=== PATIENT | male | born 1975 | race Caucasian/White ===

== ENCOUNTER 2017-11-23 11:08 | Inpatient (IN) ==
[2017-11-23 11:42] LABS: Bilirubin,Urine Negative (Negative); Blood,Urine Negative (Negative); Clarity,Urine Clear (Clear); Color,Urine Yellow (Yellow); Glucose,Urine (UA) Normal (Normal); Ketones,Urine Negative (Negative); Leukocyte Esterase,Urine Negative (Negative); Nitrite,Urine Negative (Negative); Protein,Urine Negative (Neg-Trace); Specific Gravity,Urine 1.019 (1.010-1.025); Urobilinogen,Urine Normal (Normal)
[2017-11-23] MEDS ORDERED: 0.9 % Sodium Chloride 1,000 ML IVC ONE (12:47)
[2017-11-23] MEDS ORDERED: *HR* HYDROmorphone (PF) 1 MG/ML SYRINGE IVP ONE ×2 (12:47→15:38)
[2017-11-23] MEDS ORDERED: Ondansetron 4 MG/2 ML VIAL IVP ONE (12:47)
[2017-11-23 12:58] LABS: Basophils # 0.1 K/mcL (0.0-0.2); Basophils % 0.6 %; Eosinophils # 0.2 K/mcL (0.0-0.6); Eosinophils % 1.7 %; Hemoglobin 12.2 g/dL (12.9-16.9); Immature Granulocytes % 1.4 % (0-4); Lymphocytes # 1.7 K/mcL (0.6-4.6); Lymphocytes % 13.7 %; Mean Corpuscular HGB Conc 33.9 g/dL (31.6-35.5); Mean Corpuscular Hemoglobin 30.1 pg (28.0-33.3); Mean Corpuscular Volume 88.9 fL (83.0-100.0); Mean Platelet Volume 10.2 fL (9.4-12.4); Monocytes # 0.9 K/mcL (0.0-1.3); Monocytes % 7.2 %; Neutrophils # 9.5 K/mcL (1.6-8.9); Platelet Count 396 K/mcL (140-400); Red Blood Count 4.05 M/mcL (4.19-5.50); Red Cell Distribution Width 12.7 % (11.5-14.5); Segmented Neutrophils % 75.4 %
[2017-11-23 13:41] LABS: Alanine Aminotransferase 27 Units/L (7-52); Albumin 3.8 g/dL (3.5-5.7); Alkaline Phosphatase 146 Units/L (34-104); Aspartate Amino Transferase 19 Units/L (13-39); BUN/Creatinine Ratio 17 (6-26); Bilirubin,Indirect 0.4 mg/dL (0.0-1.2); Bilirubin,Total 0.4 mg/dL (0.3-1.0); Blood Urea Nitrogen 14 mg/dL (6-20); Calcium 9.2 mg/dL (8.6-10.3); Carbon Dioxide 28 mEq/L (23-29); Chloride 100 mEq/L (98-107); Globulin 3.8 g/dL (2.4-3.5); Glucose 106 mg/dL (70-105); Lipase 9 Units/L (11-82); Osmolality,Calculated 279 (280-300); Potassium 4.3 mEq/L (3.5-5.1); Sodium 134 mEq/L (136-145); Total Protein 7.6 g/dL (6.4-8.9); eGFR For African Americans > 60 (> 60); eGFR For Non-African Americans > 60 (> 60)
[2017-11-23] MEDS ORDERED: Levofloxacin 750 MG/150 ML 750 MG/150 ML BAG IVPB ONE (14:11)
--- NOTE | 2017-11-23 14:20 | Emergency Department Note ---
Disposition Clinical Impression: Splenic infarct Pneumonia Qualifiers: Laterality: left Disposition: Admitted As Inpatient Condition: Good Referrals: Kenny Nelson, MEDICAL DEVICE SALES CONSULTANT [Primary Care Provider] - Forms: ED Satisfaction Letter, Work/School Release Abdominal Pain HPI - General Chief Complaint: ED Abdominal Pain Stated Complaint: L Flank pain/Fever Time Seen by Provider: 11/23/17 11:14 Source: patient Nursing Notes Reviewed: Yes Vital Signs Reviewed: Yes - History of Present Illness HPI Narrative: 42-year-old male presented to the emergency room with abdominal pain 1 week. Associated with a slight cough. He states the pain is generalized in the abdomen is now spread to the left upper quadrant. Denies any urinary symptoms. No vomiting or diarrhea. States she has had low grade fevers with this cough as well. Pain is mostly to the left lower ribs as well as the left upper quadrant. No other complaints symptoms other than the cough and fever. She has no history of any pain or symptoms like this in his past. No recent travels. No history of clots in his leg or lung. NOTE: pt admitted that he had lied about his PMHX. he has hx of IV drug use. Hx of spinal epidural abscess over a year ago. had a picc line a few months ago for cellulitis and sepsis from leg cellulitis. he did not offer this infomration to me up front and lied about this. Pain Scale: 8 - Related Data Home Medications Medication Instructions Recorded Confirmed Citalopram [CeleXA] 40 mg PO DAILY 05/12/16 11/11/17 Cetirizine HCl [Zyrtec] 10 mg PO DAILY 08/13/16 11/11/17 Cyclobenzaprine HCl 5 mg PO TID 08/31/17 11/11/17 Gabapentin [Neurontin] 600 mg PO TID 08/31/17 11/11/17 Losartan Potassium [Cozaar] 100 mg PO DAILY 08/31/17 11/11/17 Montelukast Sodium [Singulair] 10 mg PO DAILY 08/31/17 11/11/17 Oxycodone HCl [Oxaydo] 7.5 mg PO QID PRN 08/31/17 11/11/17 amLODIPine [Norvasc] 5 mg PO DAILY 08/31/17 11/11/17 metFORMIN [Glucophage] 850 mg PO BIDWM 08/31/17 11/11/17 Allergies Allergy/AdvReac Type Severity Reaction Status Date / Time Penicillins Allergy Rash Verified 08/31/17 06:05 Sulfa (Sulfonamide AdvReac Rash Verified 08/31/17 09:18 Antibiotics) Constitutional: Reports: fever, chills Eyes: Reports: as per HPI ENT ED: Reports: as per HPI Cardiovascular: Denies: chest pain, palpitations Respiratory: Reports: cough Gastrointestinal: Reports: abdominal pain Genitourinary: Reports: as per HPI Musculoskeletal: Reports: as per HPI, back pain Integumentary: Reports: as per HPI Neurological: Reports: as per HPI Psychiatric: Reports: as per HPI Endocrine: Reports: fatigue Hematological/Lymphatic: Reports: as per HPI. Denies: easy bleeding, easy bruising Allergic/Immunologic: Reports: as per HPI Abdominal Pain PMH - Past Medical History Medical history: Reports: diabetes, hepatitis, hypertension, other Male Surgical History: Reports: no surgical history Psychiatric history: Reports: depression - Social History Smoking status: Current every day smoker Alcohol use: Reports: none Drug use: Reports: none Physical Exam - General Limitations: no limitations General appearance: alert, in no apparent distress - Head Head exam: atraumatic, normocephalic - ENT ENT exam: normal exam - Chest Chest inspection: Present: normal inspection - Respiratory Respiratory exam: Present: normal lung sounds bilaterally. Absent: respiratory distress, wheezes - Cardiovascular Cardiovascular exam: Present: normal rhythm, tachycardia - Abdominal Exam Abdominal exam: Present: soft, tenderness (Patient has tenderness to the left upper quadrant. Positive voluntary guarding. Slight distention of the left upper quadrant. Positive splenomegaly.), organomegaly Abdominal tenderness: Present: LUQ - Male exam: Present: normal inspection - Extremities Exam Extremities exam: Present: normal inspection - Expanded Lower Extremity Exam Hip/Pelvis exam: Present: normal inspection - Back Exam Back exam: Present: normal inspection, CVA tenderness (L) - Neurological Exam Neurological exam: Present: alert, oriented X3 - Psychiatric Psychiatric exam: Present: normal affect, normal mood - Skin Skin exam: Present: warm, dry, intact Course Vital Signs Temperature 98.2 F 11/23/17 11:08 Pulse Rate 113 11/23/17 11:08 Respiratory Rate 18 11/23/17 11:08 Blood Pressure 142/87 11/23/17 11:08 O2 Sat by Pulse Oximetry 97 11/23/17 11:08 Temperature 98.2 F 11/23/17 11:08 Pulse Rate 108 11/23/17 14:40 Respiratory Rate 16 11/23/17 14:40 Blood Pressure 141/73 11/23/17 14:40 O2 Sat by Pulse Oximetry 94 11/23/17 14:40 Oxygen Delivery Oxygen Delivery Room Air Abdominal Pain - MDM Narrative Medical decision making narrative: Patient has evidence of a splenic infarct on CT scan. I repeated the CTA of the chest and abdomen. He does have evidence what appears to be pneumonia involving the left lower lung. Patient has a history of IV drug use as well as a history of sepsis. We have ordered IV Levaquin. Pain control. IV fluids. I consulted with Dr. Noland with general surgery. He will see the patient in consultation. admit - Lab Data Result diagrams: 11/23/17 11:30 11/23/17 11:30 Lab Results 11/23/17 11/23/17 11/23/17 Range/Units 11:21 11:30 11:30 WBC 12.6 H (4.3-11.1) K/mcL RBC 4.05 L (4.19-5.50) M/mcL Hgb 12.2 L (12.9-16.9) g/dL Hct 36.0 L (37.5-50.1) % MCV 88.9 (83.0-100.0) fL MCH 30.1 (28.0-33.3) pg MCHC 33.9 (31.6-35.5) g/dL RDW 12.7 (11.5-14.5) % Plt Count 396 (140-400) K/mcL MPV 10.2 (9.4-12.4) fL Immature Gran % 1.4 (0-4) % Seg Neutrophils % 75.4 % Lymphocytes % 13.7 % Monocytes % 7.2 % Eosinophils % 1.7 % Basophils % 0.6 % Neutrophils # 9.5 H (1.6-8.9) K/mcL Lymphocytes # 1.7 (0.6-4.6) K/mcL Monocytes # 0.9 (0.0-1.3) K/mcL Eosinophils # 0.2 (0.0-0.6) K/mcL Basophils # 0.1 (0.0-0.2) K/mcL Sodium 134 L (136-145) mEq/L Potassium 4.3 (3.5-5.1) mEq/L Chloride 100 (98-107) mEq/L Carbon Dioxide 28 (23-29) mEq/L BUN 14 (6-20) mg/dL Creatinine 0.83 (0.70-1.30) mg/dL Est GFR ( Amer) > 60 (> 60) Est GFR (Non-Af Amer) > 60 (> 60) BUN/Creatinine Ratio 17 (6-26) Glucose 106 H (70-105) mg/dL Calculated Osmolality 279 L (280-300) Lactic Acid (0.5-2.2) mmol/L Calcium 9.2 (8.6-10.3) mg/dL Total Bilirubin 0.4 (0.3-1.0) mg/dL Direct Bilirubin 0.0 (0.0-0.2) mg/dL Indirect Bilirubin 0.4 (0.0-1.2) mg/dL AST 19 (13-39) Units/L ALT 27 (7-52) Units/L Alkaline Phosphatase 146 H (34-104) Units/L Serum Total Protein 7.6 (6.4-8.9) g/dL Albumin 3.8 (3.5-5.7) g/dL Globulin 3.8 H (2.4-3.5) g/dL Albumin/Globulin Ratio 1.0 L (1.1-2.2) Lipase 9 L (11-82) Units/L Urine Color Yellow (Yellow) Urine Clarity Clear (Clear) Urine pH 6.0 (5.0-8.0) pH Units Ur Specific Malcolm 1.019 (1.010-1.025) Urine Protein Negative (Neg-Trace) mg/dL Urine Glucose (UA) Normal (Normal) mg/dL Urine Ketones Negative (Negative) mg/dL Urine Blood Negative (Negative) Urine Nitrite Negative (Negative) Urine Bilirubin Negative (Negative) Urine Urobilinogen Normal (Normal) mg/dL Ur Leukocyte Esterase Negative (Negative) 11/23/17 Range/Units 13:00 WBC (4.3-11.1) K/mcL RBC (4.19-5.50) M/mcL Hgb (12.9-16.9) g/dL Hct (37.5-50.1) % MCV (83.0-100.0) fL MCH (28.0-33.3) pg MCHC (31.6-35.5) g/dL RDW (11.5-14.5) % Plt Count (140-400) K/mcL MPV (9.4-12.4) fL Immature Gran % (0-4) % Seg Neutrophils % % Lymphocytes % % Monocytes % % Eosinophils % % Basophils % % Neutrophils # (1.6-8.9) K/mcL Lymphocytes # (0.6-4.6) K/mcL Monocytes # (0.0-1.3) K/mcL Eosinophils # (0.0-0.6) K/mcL Basophils # (0.0-0.2) K/mcL Sodium (136-145) mEq/L Potassium (3.5-5.1) mEq/L Chloride (98-107) mEq/L Carbon Dioxide (23-29) mEq/L BUN (6-20) mg/dL Creatinine (0.70-1.30) mg/dL Est GFR ( Amer) (> 60) Est GFR (Non-Af Amer) (> 60) BUN/Creatinine Ratio (6-26) Glucose (70-105) mg/dL Calculated Osmolality (280-300) Lactic Acid 1.2 (0.5-2.2) mmol/L Calcium (8.6-10.3) mg/dL Total Bilirubin (0.3-1.0) mg/dL Direct Bilirubin (0.0-0.2) mg/dL Indirect Bilirubin (0.0-1.2) mg/dL AST (13-39) Units/L ALT (7-52) Units/L Alkaline Phosphatase (34-104) Units/L Serum Total Protein (6.4-8.9) g/dL Albumin (3.5-5.7) g/dL Globulin (2.4-3.5) g/dL Albumin/Globulin Ratio (1.1-2.2) Lipase (11-82) Units/L Urine Color (Yellow) Urine Clarity (Clear) Urine pH (5.0-8.0) pH Units Ur Specific Malcolm (1.010-1.025) Urine Protein (Neg-Trace) mg/dL Urine Glucose (UA) (Normal) mg/dL Urine Ketones (Negative) mg/dL Urine Blood (Negative) Urine Nitrite (Negative) Urine Bilirubin (Negative) Urine Urobilinogen (Normal) mg/dL Ur Leukocyte Esterase (Negative)
[2017-11-23] MEDS ORDERED: WATER IVPB ONE (16:00)
[2017-11-23] MEDS ORDERED: VANCOMYCIN IVPB ONE (16:00)
[2017-11-23] MEDS ORDERED: D10 IVPB ONE (16:00)
[2017-11-23] MEDS ORDERED: Vancomycin 1,750 MG in D5% in Water 500 ML IVPB ONE (16:15)
[2017-11-23] MEDS ORDERED: *HR* Morphine 2 MG/ML SYRINGE IVP ONE (18:59)
[2017-11-23] MEDS ORDERED: *HR* Promethazine 25 MG/ML VIAL IVP ONE (19:54)
[2017-11-23] MEDS ORDERED: Ipratropium/Albuterol Neb 3 ML IH PRN ×2 (20:45→20:52)
[2017-11-23] MEDS ORDERED: Cefepime HCl 1,000 MG in D5% in Water (Mini-Bag+) 100 ML IVPB SCH (20:46)
[2017-11-23] MEDS ORDERED: Ondansetron 4 MG/2 ML VIAL IVP PRN (20:47)
[2017-11-23] MEDS ORDERED: Naloxone 0.4 MG/ML INJ IVP PRN (20:47)
[2017-11-23] MEDS ORDERED: *HR* Promethazine 25 MG/ML VIAL IVP PRN (20:47)
[2017-11-23] MEDS ORDERED: Acetaminophen 325 MG TABLET PO PRN (20:47)
--- NOTE | 2017-11-23 20:55 | Internal Med History&Physical ---
Date of Encounter: 11/23/17 Time of Encounter: 20:53 Assessment and Plan (1) Severe sepsis Current visit: Yes Status: Acute Severe sepsis secondary to healthcare associated pneumonia present upon admission Continue Levaquin, add vancomycin IV and cefepime Repeat lactic acid Blood cultures, aggressive hydration with IV fluids, consider pressors and ICU is not responding to fluids Order echocardiogram due to prior history of bacteremia and IV drug abuse Omeprazole for GI prophylaxis and subcutaneous heparin for DVT prophylaxis. The patient will be admitted as inpatient, expected to stay more than 2 midnights. Full code. Time spent on this critical care assessment 40 minutes. (2) Healthcare-associated pneumonia Current visit: Yes Status: Acute (3) Diabetes mellitus Current visit: No Status: Chronic Hold metformin, use insulin sliding scale Qualifiers: Diabetes mellitus type: type 2 Diabetes mellitus complication status: without complication Diabetes mellitus terminal operations supervisor insulin use: without terminal operations supervisor use Qualified Code(s): E11.9 - Type 2 diabetes mellitus without complications (4) Hypertension Current visit: No Status: Chronic Hold losartan and amlodipine Qualifiers: Hypertension type: essential hypertension Qualified Code(s): I10 - Essential (primary) hypertension (5) Nicotine use disorder Current visit: No Status: Chronic Nicotine patch (6) Splenic infarct Current visit: Yes Status: Acute Surgery was consulted Internal Medicine - H&P: HPI Chief complaint: Abdominal pain Admitted From: Emergency Dept History of present illness: Mr. Cristobal is a 42 year old male with a past medical history of prior IV drug abuse, enterococcus bacteremia, spinal epidural abscess, diabetes not insulin- dependent, hepatitis C, continue emergency room complaining of severe abdominal pain that started a few days ago and got worse earlier today. Recently he was discharged from a hospital on 09/05/2017. He has been dealing with this pain for about a week. CT scan of the chest showed no pulmonary emboli but showed a left small pleural effusion and a left basilar opacity compatible with possible pneumonia. A CT scan of the abdomen showed a very large splenic infarct. Sodium is 134 white blood cell count 12.6 heart rate 153 blood pressure dropped to 88/58. Dr. Lawson was consulted by the ER physician. Was started on Levaquin. He is extremely weak, complaining of severe abdominal pain and shortness of breath. 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, sepsis, leg cellulitis , depression, neuropathy, hypertension, asthma, tobacco use, prior history of IV drug abuse, diabetes type 2 not insulin-dependent) Psychiatric history: depression - Past Surgical History Surgical History: appendectomy, other (PICC line) - Social History Smoking Status: Current every day smoker Packs per day: 1, uses his cigarettes since 2 months ago Smokeless Tobacco Status: No Alcohol use: none Drug use: IV Drug Use - Family History Mother History Unknown: Yes Living Status: Still Living Hx Family Cardiac Disorders: Yes (Hypertension) Hx Family Neurologic Disorders: Yes (History of a stroke) Father History Unknown: Yes Living Status: Still Living Hx Family Cardiac Disorders: Yes (Hypertension) - Additional Family History Additional family history: Mother with hypertension CVA, lupus factor V deficiency, father with hypertension Internal Medicine - H&P: Meds Citalopram [CeleXA] 40 mg PO DAILY 05/12/16 [History] Cetirizine HCl [Zyrtec] 10 mg PO DAILY 08/13/16 [History] Cyclobenzaprine HCl 5 mg PO TID 08/31/17 [History] Gabapentin [Neurontin] 600 mg PO TID 08/31/17 [History] Losartan Potassium [Cozaar] 50 mg PO DAILY 08/31/17 [History] Montelukast Sodium [Singulair] 10 mg PO DAILY 08/31/17 [History] amLODIPine [Norvasc] 5 mg PO DAILY 08/31/17 [History] metFORMIN [Glucophage] 850 mg PO BIDWM 08/31/17 [History] OxyCODONE/APAP 7.5/325 [Percocet 7.5/325 MG] 1 tab PO QID PRN 11/23/17 [History] 3 Allergy/AdvReac Type Severity Reaction Status Date / Time Penicillins Allergy Rash Verified 11/23/17 16:07 Sulfa (Sulfonamide AdvReac Rash Verified 11/23/17 16:07 Antibiotics) All Systems PM: A 10-system review of systems was performed and is negative for pertinent findings except as documented above in the HPI. Review of systems: Unable to be completed due to the patient's status/critical state - Constitutional Vitals: Temp Pulse Resp BP Pulse Ox 98.2 F 140 16 122/80 95 11/23/17 19:35 11/23/17 19:35 11/23/17 19:35 11/23/17 19:35 11/23/17 19:35 General appearance: Present: A&O X 3 - Head Head exam: Present: atraumatic, normocephalic - Eye Eye exam: Present: PERRL, conjuntiva pink, sclera anicteric Pupils: Present: PERRL - Neck Neck exam general surgery: Present: supple, trachea midline. Absent: lymphadenopathy - Respiratory Respiratory exam: Present: CTAB. Absent: accessory muscle use, rales, rhonchi, wheezes - Cardiovascular Cardiovascular exam: Present: RRR, +S1, +S2, tachycardia. Absent: diastolic murmur, gallop, rubs, systolic murmur - GI/Abdominal GI/Abdominal exam: Present: normal bowel sounds, soft, no peritoneal signs. Absent: distended, tenderness Additional comments: Severe abdominal tenderness in the left upper quadrant - Extremities Exam Extremities exam: Present: warm, radial pulses palpable and symmetrical. Absent : calf tenderness, cyanotic, pedal edema - Neurological Exam Neurological exam: Present: CN II-XII intact, oriented X3, no focal deficits. Absent: pronater drift, facial droop, speech deficit - Skin Skin exam: Present: dry, intact Internal Med - H&P Results - Labs CBC & Chem 7: 11/23/17 11:30 11/23/17 11:30
[2017-11-23] MEDS ORDERED: 0.9 % Sodium Chloride 1,000 ML IVC SCH (21:00)
[2017-11-23] MEDS ORDERED: Vancomycin 1,750 MG in D5% in Water 250 ML IVPB SCH (21:00)
[2017-11-23] MEDS: *HR* Heparin 5,000 UNIT/ML VIAL SQ SCH (21:39)
[2017-11-23] MEDS: Cefepime HCl 1,000 MG in Water for inj. (sterile) 20 ML 10 ML IVP SCH (21:39)
[2017-11-23] MEDS: Gabapentin 300 MG CAPSULE PO SCH (21:39)
[2017-11-23] MEDS: Nicotine 21 MG PATCH.TD24 TD SCH (21:40)
[2017-11-23] MEDS: *HR* HYDROmorphone (PF) 1 MG/ML SYRINGE IVP PRN (22:05)
[2017-11-23] MEDS: *HR* OxyCODONE Immed Rel 5 MG TABLET PO PRN (23:00)
[2017-11-23] MEDS: 0.9 % Sodium Chloride 1,000 ML IVC SCH (23:04)
[2017-11-24] MEDS: *HR* HYDROmorphone (PF) 1 MG/ML SYRINGE IVP PRN ×2 (00:05→02:21)
[2017-11-24 00:43] LABS: Basophils % 0.3 %; Hematocrit 27.2 % (37.5-50.1); Mean Platelet Volume 9.7 fL (9.4-12.4)
[2017-11-24 00:45] LABS: Basophils # 0.1 K/mcL (0.0-0.2); Eosinophils % 0.1 %; Hemoglobin 9.4 g/dL (12.9-16.9); Immature Granulocytes % 2.1 % (0-4); Immature Platelets 4.2 % (1.1-6.1); Lymphocytes # 1.2 K/mcL (0.6-4.6); Lymphocytes % 4.8 %; Mean Corpuscular HGB Conc 34.6 g/dL (31.6-35.5); Mean Corpuscular Hemoglobin 29.9 pg (28.0-33.3); Mean Corpuscular Volume 86.6 fL (83.0-100.0); Monocytes # 1.8 K/mcL (0.0-1.3); Neutrophils # 21.9 K/mcL (1.6-8.9); Platelet Count 491 K/mcL (140-400); Red Blood Count 3.14 M/mcL (4.19-5.50); Red Cell Distribution Width 12.7 % (11.5-14.5); Segmented Neutrophils % 85.7 %
[2017-11-24 00:57] LABS: Calcium 8.4 mg/dL (8.6-10.3); Potassium 4.9 mEq/L (3.5-5.1)
[2017-11-24] MEDS: *HR* Morphine 2 MG/ML SYRINGE IVP PRN ×3 (01:37→08:01)
[2017-11-24] MEDS: *HR* HYDROmorphone 2 MG/ML SYRINGE IVP PRN ×4 (03:52→10:53)
[2017-11-24 03:54] LABS: Platelet Estimate Increased (Normal)
[2017-11-24] MEDS: 0.9 % Sodium Chloride 1,000 ML IVC SCH ×2 (04:51→10:35)
[2017-11-24] MEDS ORDERED: Vancomycin 1,750 MG in D5% in Water 500 ML IVPB SCH (05:00)
[2017-11-24] MEDS: Cefepime HCl 1,000 MG in Water for inj. (sterile) 20 ML 10 ML IVP SCH (05:56)
[2017-11-24] MEDS: *HR* Heparin 5,000 UNIT/ML VIAL SQ SCH (05:56)
[2017-11-24] MEDS: *HR* OxyCODONE Immed Rel 5 MG TABLET PO PRN (06:44)
[2017-11-24] MEDS: Gabapentin 300 MG CAPSULE PO SCH (08:04)
[2017-11-24] MEDS: Nicotine 21 MG PATCH.TD24 TD SCH (08:04)
--- NOTE | 2017-11-24 08:49 | General Surgery Consult Note ---
Date of Encounter: 11/24/17 Time of Encounter: 08:38 Assessment and Plan (1) Splenic infarct Status: Acute CT abd - Splenomegaly. Large, fairly sharply demarcated, somewhat wedge-shaped area of low attenuation within the spleen suggests changes associated with splenic infarction. Patient has clinical symptoms of Splenic Pathology. Patient is hemodynamically unstable/Septic and declining - CAT scan and echo - pending - tox screen, hep/HIV panels, and echo pending - recommend transfer to ICU - if vegetations on echo, patient will need to be transferred out (2) Hepatitis C Status: Acute per management of hospitalist Qualifiers: Qualified Code(s): B19.20 - Unspecified viral hepatitis C without hepatic coma (3) Severe sepsis Status: Acute per management of hospitalist History of Present Illness Consult date: 11/24/17 Reason for consult: abdominal pain Requesting physician: Heber Grissom History of present illness: Mr Cristobal is a 42 year old M w/ PMH of IVDU, enterococcus bacteremia, spinal epidural abscess, diabetes, Hep C untreated surgery is consulting due to splenic infarct found on CT. Patient presented to ED due to having Left upper quadrant sharp pain a "few days ago", which progressed to severity yesterday. pain 10/10. per chart review, on CT abd showed a small left pleural effusion, and left basilar opacity possibly PNA, and a very large splenic infacrt. He was subsequently started on Morphine for pain, and abx cefepime, levaquin, and vanc. This AM patient reports pain continues to progress, and he is unable to get comfortable. He has associated shortness of breath, abdominal distension. He states no previous abdominal surgery, familial hx of sickle cell disease or leukemia. He states that his last IVDU was over a month ago, and he takes percocet at home for his thoracic issues. Patient states he has had petechiae in his lower extremities since he was a child. 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, sepsis, leg cellulitis , depression, neuropathy, hypertension, asthma, tobacco use, prior history of IV drug abuse, diabetes type 2 not insulin-dependent) Psychiatric history: depression - Past Surgical History Surgical History: appendectomy, other (PICC line) - Social History Smoking Status: Current every day smoker Packs per day: 1, uses his cigarettes since 2 months ago Smokeless Tobacco Status: No Alcohol use: none Drug use: IV Drug Use - Family History Mother History Unknown: Yes Living Status: Still Living Hx Family Cardiac Disorders: Yes (Hypertension) Hx Family Neurologic Disorders: Yes (History of a stroke) Father History Unknown: Yes Living Status: Still Living Hx Family Cardiac Disorders: Yes (Hypertension) Medications and Allergies Citalopram [CeleXA] 40 mg PO DAILY 05/12/16 [History] Cetirizine HCl [Zyrtec] 10 mg PO DAILY 08/13/16 [History] Cyclobenzaprine HCl 5 mg PO TID 08/31/17 [History] Gabapentin [Neurontin] 600 mg PO TID 08/31/17 [History] Losartan Potassium [Cozaar] 50 mg PO DAILY 08/31/17 [History] Montelukast Sodium [Singulair] 10 mg PO DAILY 08/31/17 [History] amLODIPine [Norvasc] 5 mg PO DAILY 08/31/17 [History] metFORMIN [Glucophage] 850 mg PO BIDWM 08/31/17 [History] OxyCODONE/APAP 7.5/325 [Percocet 7.5/325 MG] 1 tab PO QID PRN 11/23/17 [History] 3 Allergy/AdvReac Type Severity Reaction Status Date / Time Penicillins Allergy Rash Verified 11/23/17 16:07 Sulfa (Sulfonamide AdvReac Rash Verified 11/23/17 16:07 Antibiotics) Review of Systems All systems PM: A 10-system review of systems was performed and is negative for pertinent findings except as documented above in the HPI. - Constitutional excessive sweating, fatigue, weakness, no chills, no fever(s) - Cardiovascular dyspnea, no chest pain, no chest pain at rest, no diaphoresis, no palpitations, no rapid heart rate, no slow heart rate - Respiratory dyspnea, pain on inspiration, no cough, no hemoptysis, no dyspnea on exertion, no chest congestion - Gastrointestinal abdominal pain, bloating, no belching, no change in bowel habits, no change in stool character, no coffee ground emesis, no constipation, no excessive flatus - Integumentary no pruritus - Neurological no burning sensations, no convulsions, no dizziness, no focal weakness - Psychiatric no anxiety, no behavioral changes, no confusion, no depression, no difficulty concentrating, no hallucinations, no panic attacks, no visual hallucinations General Surgery Exam Initial Vital Signs Temp Pulse Resp BP Pulse Ox 98.2 F 113 18 142/87 97 11/23/17 11:08 11/23/17 11:08 11/23/17 11:08 11/23/17 11:08 11/23/17 11:08 - General physical appearance moderate distress, severe pain, obese - Eyes normal ocular movement. negative: icteric - ENT normal mucosa, no hearing loss, no congestion - Respiratory other (rapid shallow breathing) - Cardiovascular Cardiovascular exam: Present: tachycardia, no murmurs/rubs/gallops - Abdomen Abdomen general surgery: Present: bowel sounds present, distended, tender. Absent: guarding, rebound Abdominal Tenderness: Present: LUQ - Neurologic Present: CN 2-12 grossly intact - Psychiatric Psychiatric general surgery: Present: A&Ox3, appropriate, oriented to person, oriented to place, oriented to time, speech is normal, memory intact Exam Initial Vital Signs Temp Pulse Resp BP Pulse Ox 98.2 F 113 18 142/87 97 11/23/17 11:08 11/23/17 11:08 11/23/17 11:08 11/23/17 11:08 11/23/17 11:08 Results - Labs 11/24/17 11:29 11/24/17 11:29 Abnormal lab results WBC 25.6 K/mcL (4.3-11.1) H D 11/24/17 00:34 RBC 3.14 M/mcL (4.19-5.50) L 11/24/17 00:34 Hgb 9.4 g/dL (12.9-16.9) L D 11/24/17 00:34 Hct 27.2 % (37.5-50.1) L 11/24/17 00:34 Plt Count 491 K/mcL (140-400) H 11/24/17 00:34 Neutrophils # 21.9 K/mcL (1.6-8.9) H 11/24/17 00:34 Monocytes # 1.8 K/mcL (0.0-1.3) H 11/24/17 00:34 Platelet Estimate Increased (Normal) H 11/24/17 00:34 Sodium 128 mEq/L (136-145) L 11/24/17 00:34 Carbon Dioxide 20 mEq/L (23-29) L 11/24/17 00:34 BUN 21 mg/dL (6-20) H 11/24/17 00:34 Creatinine 1.61 mg/dL (0.70-1.30) H 11/24/17 00:34 Est GFR ( Amer) 57 (> 60) L 11/24/17 00:34 Est GFR (Non-Af Amer) 47 (> 60) L 11/24/17 00:34 Glucose 189 mg/dL (70-105) H 11/24/17 00:34 POC Glucose 170 (58-89) H 11/23/17 19:17 Calculated Osmolality 274 (280-300) L 11/24/17 00:34 Calcium 8.4 mg/dL (8.6-10.3) L 11/24/17 00:34 Alkaline Phosphatase 146 Units/L (34-104) H 11/23/17 11:30 Globulin 3.8 g/dL (2.4-3.5) H 11/23/17 11:30 Albumin/Globulin Ratio 1.0 (1.1-2.2) L 11/23/17 11:30 Lipase 9 Units/L (11-82) L 11/23/17 11:30 Diabetes panel 11/24/17 Range/Units 00:34 Sodium 128 L (136-145) mEq/L Potassium 4.9 (3.5-5.1) mEq/L Chloride 99 (98-107) mEq/L Carbon Dioxide 20 L (23-29) mEq/L BUN 21 H (6-20) mg/dL Creatinine 1.61 H (0.70-1.30) mg/dL Glucose 189 H (70-105) mg/dL Calcium 8.4 L (8.6-10.3) mg/dL Calcium panel 11/24/17 Range/Units 00:34 Calcium 8.4 L (8.6-10.3) mg/dL Pituitary panel 11/24/17 Range/Units 00:34 Sodium 128 L (136-145) mEq/L Potassium 4.9 (3.5-5.1) mEq/L Chloride 99 (98-107) mEq/L Carbon Dioxide 20 L (23-29) mEq/L BUN 21 H (6-20) mg/dL Creatinine 1.61 H (0.70-1.30) mg/dL Glucose 189 H (70-105) mg/dL Calcium 8.4 L (8.6-10.3) mg/dL Adrenal panel 11/24/17 Range/Units 00:34 Sodium 128 L (136-145) mEq/L Potassium 4.9 (3.5-5.1) mEq/L Chloride 99 (98-107) mEq/L Carbon Dioxide 20 L (23-29) mEq/L BUN 21 H (6-20) mg/dL Creatinine 1.61 H (0.70-1.30) mg/dL Glucose 189 H (70-105) mg/dL Calcium 8.4 L (8.6-10.3) mg/dL All other labs normal. Consult Discharge Plan - Plan Referrals: Kenny Nelson CNP [Primary Care Provider] -
[2017-11-24] MEDS ORDERED: Levofloxacin 750 MG/150 ML 750 MG/150 ML BAG IVPB SCH (09:00)
[2017-11-24] MEDS ORDERED: Perflutren Lipid Microsphere 1.3 ML in 0.9 % Sodium Chloride 8.7 ML IVP ONE (09:48)
[2017-11-24] MEDS ORDERED: Perflutren Lipid Microsphere 2 ML VIAL ONE (09:57)
[2017-11-24] MEDS ORDERED: Cefepime HCl 1,000 MG in Water for inj. (sterile) 10 ML IVP ONE (10:46)
[2017-11-24] MEDS ORDERED: Cefepime HCl 2,000 MG in Water for inj. (sterile) 20 ML IVP SCH (11:00)
--- NOTE | 2017-11-24 11:55 | Event Note ---
Date of Encounter: 11/24/17 Time of Encounter: 10:00 This FINANCIAL SERVICES REPRESENTATIVE is working in conjunction with the resident (Dr. Zhang), hospitalist ( Dr. Sebastian), and consulting surgeon (Dr. Noland). The patient was evaluated by the resident this am. This FINANCIAL SERVICES REPRESENTATIVE evaluated the patient at aprox 0945 this am and communicated findings to Dr. Noland. Pt confirmed IVDU and again states his last use was aprox 1 month ago. He denies trauma. There is a possibility of a history of hep C, but I am unable to confirm it at this time. On exam, Pt with tachycardia (140 BPM), tachypnea (34-36 rate), slightly hypotensive, and in moderate distress. His abdomen is distended, involuntary gaurding noted, and firm in the BL upper quadrants (particularly on the left). He is exquisitely tender on the left. Echo was at bedside. I reviewed the patient with (s)Danielle Browning, and Vicente. Dr. Santos began transfer to ICU. We obtained a repeat CT of the abdomen and pelvis (accompanied by Dr. Zhang to radiology). Dr. Jones called this FINANCIAL SERVICES REPRESENTATIVE to report findings on CT which demonstrated new hemoperiteneum near the liver and new hemorrhage in the spleen around the area of infarct vs laceration. Of note he had remaining contrast in the kidneys which brings about concern for a kidney injury. Echo results reviewed and noted poor quality sufficient to include or rule out valvular vegetation but does note that he has thicking of the mitral valve and is recommended to complete a transesophageal echocardiogram concern for endocarditis is present. Dr. Noland recommended transfer of patient to higher acquity facility given possible vavlular endocarditis and current imaging. Primary medicine (Dr. Villagomez , ICU) will facilitate transfer of patient to higher level of care.
[2017-11-24 12:10] LABS: Hemoglobin 8.1 g/dL (12.9-16.9); Mean Corpuscular HGB Conc 33.8 g/dL (31.6-35.5); Mean Corpuscular Volume 88.9 fL (83.0-100.0); Platelet Count 396 K/mcL (140-400); Red Cell Distribution Width 13.1 % (11.5-14.5)
[2017-11-24 12:15] LABS: INR 1.2; Prothrombin Time 13.3 Seconds (9.4-12.1)
[2017-11-24 12:36] LABS: Albumin 3.3 g/dL (3.5-5.7); Albumin/Globulin Ratio 0.9 (1.1-2.2); Bilirubin,Total 0.4 mg/dL (0.3-1.0); Globulin 3.5 g/dL (2.4-3.5); Total Protein 6.8 g/dL (6.4-8.9)
--- NOTE | 2017-11-24 12:49 | Pulmonology Consult Note ---
<Christian Mosquera - Last Filed: 11/24/17 16:38> Date of Encounter: 11/24/17 Time of Encounter: 11:00 Assessment and Plan (1) Hemorrhagic shock Status: Acute Patient has splenic hemorrhage secondary to splenic infarct. Patient denies trauma. Patient was hypotensive this morning tachycardic and tachypnea. - Hypotension, tachycardia, tachypnea, acute kidney injury, hemoperitoneum secondary to splenic hemorrhage Plan: - Blood pressure improved with IV normal saline at 200 mL's per hour - EPIV placed, 2 IVs - Patient had type and screen, INR, repeat hemoglobin - 1 unit PRBC transfusion at this time - Transfer to [facility] (2) Splenic infarct Status: Acute Patient was admitted with abdominal pain, CT of the abdomen demonstrated splenic infarct. (3) Hemorrhage of spleen Status: Acute Mr. Cristobal had worsening abdominal pain, tachycardia, tachypnea, abdominal distention and diffuse tenderness to light palpation with guarding. Hemoglobin dropped from 11-8. CT of the abdomen demonstrated new moderate nonacute hemoperitoneum predominantly in the perihepatic and perisplenic region. Patient evaluated by critical care, general surgery recommended transfer accepted by [facility] general surgery will be transferred to their ICU. (4) RASHAWN (acute kidney injury) Status: Acute Mr. Cristobal demonstrates acute kidney injury with current creatinine 2.27 baseline 0.83. Creatinine worsen the setting of hemorrhagic shock, IV contrast yesterday and received an IV contrast dye today. - CT of the abdomen performed today in the setting of acute kidney injury after discussion with interventional radiology. The risks of worsening end-stage renal disease was discussed with the patient and recommend dialysis after CTA dye load. Patient currently receiving IV fluids at 200 mL's per hour. Plan: - Patient to transfer to [facility], discussed with primary team about dialysis need after transfer and intervention for splenic hemorrhage. - Avoid further nephrotoxic medications and renally dose antibiotics. (5) Hepatitis C Status: Acute Patient has a history of hepatitis C, known IV drug user with last use 1 month ago Qualifiers: Qualified Code(s): B19.20 - Unspecified viral hepatitis C without hepatic coma (6) Diabetes mellitus Status: Chronic Known type II diabetic, glucose currently controlled. Patient is nothing by mouth and transferred to [facility]. Qualifiers: Diabetes mellitus type: type 2 Diabetes mellitus complication status: without complication Diabetes mellitus halfway insulin use: without marine oil terminal superintendent use Qualified Code(s): E11.9 - Type 2 diabetes mellitus without complications (7) Hypertension Status: Chronic Known history of hypertension, all antihypertensive medications held at this time in the setting of hemorrhagic shock. Qualifiers: Hypertension type: essential hypertension Qualified Code(s): I10 - Essential (primary) hypertension (8) Echocardiogram abnormal Status: Acute Impressions: Technically sub-optimal due to clinical status and poor windows. LVEF >75%. Normal LV chamber size and hyperdynamic function. Mild left ventricular diastolic dysfunction. Normal right ventricular structure and function. Unable to estimate RVSP due to lack of TR jet. Valves were not well visualized. Overall, this study is inadequate to evaluate for endocarditis. Recommend a transesophageal echocardiogram if clinically indicated. There is potential risk for endocarditis, patient has systolic ejection murmur, history of IV drug use, needs blood cultures drawn. (9) History of bacteremia Status: Acute History of enterococcus bacteremia Blood cultures from 08/31/2017 positive for enterococcus species, sensitive to ampicillin, ciprofloxacin, gentamicin, levofloxacin, Zyvox, streptomycin, vancomycin. resistant to tetracycline History of Present Illness Consult date: 11/24/17 Requesting physician: Rex Santos Reason for consult: other (spleenic hemorrhage) Chief complaint: abdominal pain History of present illness: Mr. Cristobal is a 42 year old male with a past medical history of prior IV drug abuse, enterococcus bacteremia, spinal epidural abscess, diabetes not insulin- dependent, hepatitis C, came to the emergency department complaining of severe abdominal pain (11/23/2017) that started last . He states that he had a sudden onset of abdominal pain last that started in his epigastric region and slowly migrated to his left flank. He waited until after the holidays to come in and said it aggressively got worse to the point where he is unable to eat and became more severe in nature to the point he felt he needed to be seen in the emergency department. Mr. Cristobal has a history of IV drug use denies last IV drug use was one month ago. He denies any abdominal trauma, falls or any other known causes for his abdominal pain. He has not taken any other medications other than that have been prescribed since admission. He states that his only medical issues are hypertension, diabetes and hepatitis C. He said that his blood pressure is usually high at home and he does not feel right currently. He states that he feels weak all over, lightheaded having trouble with thinking, increased shortness of breath and worsening abdominal pain. Critical care team was consulted by the hospitalist service. Upon admission last evening he had a CT of the abdomen that demonstrated splenic infarct. A repeat CT of the abdomen noncontrast demonstrated a new moderate volume acute hemoperitoneum predominantly in the perihepatic and perisplenic region. Splenomegaly with persistent focal wedge-shaped area within the mid spleen is again identified with areas of high density material compatible with acute hemorrhage. CT of the abdomen was reviewed with interventional radiology who recommended a CTA of the abdomen to identify and further localize the site of hemorrhage. The patient had an elevated creatinine in the setting of hypovolemia, receives IV contrast yesterday. There is risk of further degradation of his renal function and this was discussed with Mr. Cristobal the risk of having contrast dye and potentially needing dialysis to protect his renal function. Mr. Cristobal's case was discussed with general surgery who recommended transfer. There was concern that Mr. Cristobal may also have risk for endocarditis with a history of enterococcus bacteremia and his IV drug use. Echocardiogram was completed that demonstrated a left ventricle ejection fraction greater than 75%, normal left and jugular chamber size and hyperdynamic function. Mild left ventricular diastolic dysfunction. Normal right ventricular structure and function. Unable to estimate RVSP due to a lack of TR jet. The valves were not well visualized and overall the study was inadequate for endocarditis. It was recommended that he undergoes a ERICA. Upon evaluation Mr. Cristobal was found to be tachycardic, tachypneic and blood pressure was unstable and ERICA was deferred. [facility] transfer center was contacted and splenic hemorrhage was discussed with the general surgery team and he was accepted to their surgical ICU. Prior to transfer Mr. Cristobal had 2 IVs placed, IV fluids running at 250 ML's/hr and will be sent with 1 unit PRBC for transfusion. Stat labs: WBC 18.9, hemoglobin 8.1, previous 9.4 at midnight and at arrival was 11. Platelet count 396, PT 13.3, INR 1.2, sodium 1:30, potassium 5.0, chloride 101, CO2 20, BUN 29, creatinine 2.27, GFR 32. 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, sepsis, leg cellulitis , depression, neuropathy, hypertension, asthma, tobacco use, prior history of IV drug abuse, diabetes type 2 not insulin-dependent) Psychiatric history: depression - Past Surgical History Surgical History: appendectomy, other (PICC line) - Social History Smoking Status: Current every day smoker Packs per day: 1, uses his cigarettes since 2 months ago Smokeless Tobacco Status: No Alcohol use: none Drug use: IV Drug Use - Family History Mother History Unknown: Yes Living Status: Still Living Hx Family Cardiac Disorders: Yes (Hypertension) Hx Family Neurologic Disorders: Yes (History of a stroke) Father History Unknown: Yes Living Status: Still Living Hx Family Cardiac Disorders: Yes (Hypertension) Medications and Allergies 3 Allergy/AdvReac Type Severity Reaction Status Date / Time Penicillins Allergy Rash Verified 11/23/17 16:07 Sulfa (Sulfonamide AdvReac Rash Verified 11/23/17 16:07 Antibiotics) All Systems: A 10-system review of systems was performed and is negative for pertinent findings except as documented above in the HPI. - Constitutional Constitutional: fatigue, weakness, no chills, no excessive sweating, no fever(s) - EENT Eyes: no loss of peripheral vision Nose, mouth and throat: dizziness, no facial pain, no nasal congestion, no nasal trauma, no sore throat - Cardiovascular Cardiovascular: dyspnea, no chest pain, no edema, no irregular heart rhythm - Respiratory Respiratory: dyspnea, no wheezing, no chest congestion - Gastrointestinal Gastrointestinal: abdominal pain, cramping, no nausea, no vomiting - Genitourinary Genitourinary: no difficulty urinating - Musculoskeletal Musculoskeletal: weakness, back pain - Neurological Neurological: no confusion, no loss of vision, no syncope - Psychiatric Psychiatric: anxiety - Hematologic/Lymphatic Hematologic/Lymphatic: no easy bleeding Physical Examination Vital Signs: Vital Signs, Last 4 Hours Temp Pulse Resp BP Pulse Ox 11/24/17 11:23 98.3 F 127 24 117/64 93 General appearance: lethargic, appears uncomfortable Eyes: nonicteric ENT: oropharynx moist Neck: supple Effort: very labored Inspection: normal Auscultation: bilateral: diminished breath sounds Cardiovascular: murmur noted (grade 2/6 systolic ejection murmur) Gastrointestinal: hypoactive bowel sounds, tender (Diffuse), guarding, hepatomegaly Integumentary: normal Extremities: no cyanosis, no edema, no clubbing Musculoskeletal: no deformities normal mental status, non-focal exam, pupils equal and round Results - Laboratory Findings CBC and BMP: 11/24/17 11:29 11/24/17 11:29 PT/INR, D-dimer PT 13.3 Seconds (9.4-12.1) H 11/24/17 11:29 Abnormal lab findings: Abnormal lab results WBC 18.9 K/mcL (4.3-11.1) H 11/24/17 11:29 RBC 2.70 M/mcL (4.19-5.50) L 11/24/17 11:29 Hgb 8.1 g/dL (12.9-16.9) L 11/24/17 11:29 Hct 24.0 % (37.5-50.1) L 11/24/17 11:29 Neutrophils # 21.9 K/mcL (1.6-8.9) H 11/24/17 00:34 Monocytes # 1.8 K/mcL (0.0-1.3) H 11/24/17 00:34 Platelet Estimate Increased (Normal) H 11/24/17 00:34 PT 13.3 Seconds (9.4-12.1) H 11/24/17 11:29 Sodium 130 mEq/L (136-145) L 11/24/17 11:29 Carbon Dioxide 20 mEq/L (23-29) L 11/24/17 11:29 BUN 29 mg/dL (6-20) H 11/24/17 11:29 Creatinine 2.27 mg/dL (0.70-1.30) H 11/24/17 11:29 Est GFR ( Amer) 38 (> 60) L 11/24/17 11:29 Est GFR (Non-Af Amer) 32 (> 60) L 11/24/17 11:29 Glucose 127 mg/dL (70-105) H 11/24/17 11:29 POC Glucose 134 (58-89) H 11/24/17 12:13 Calculated Osmolality 277 (280-300) L 11/24/17 11:29 Calcium 8.0 mg/dL (8.6-10.3) L 11/24/17 11:29 Alkaline Phosphatase 129 Units/L (34-104) H 11/24/17 11:29 Albumin 3.3 g/dL (3.5-5.7) L 11/24/17 11:29 Albumin/Globulin Ratio 0.9 (1.1-2.2) L 11/24/17 11:29 Lipase 9 Units/L (11-82) L 11/23/17 11:30 - Clinical Findings Intake & Output: Intake & Output 11/23/17 11/24/17 11/24/17 23:59 07:59 15:59 Intake Total 10 / 160 1120 / 1120 1000 / 1000 Output Total 225 / 225 Balance -215 / -65 1120 / 1120 1000 / 1000 Weight 117.5 kg Consult Discharge Plan - Plan Referrals: Kenny Nelson, [employer] [Primary Care Provider] - <Helen Carpenter - Last Filed: 11/24/17 18:12> Date of Encounter: 11/24/17 All Systems: A 10-system review of systems was performed and is negative for pertinent findings except as documented above in the HPI. Results - Laboratory Findings CBC and BMP: 11/24/17 11:29 11/24/17 11:29 PT/INR, D-dimer PT 13.3 Seconds (9.4-12.1) H 11/24/17 11:29 Abnormal lab findings: Abnormal lab results WBC 18.9 K/mcL (4.3-11.1) H 11/24/17 11:29 RBC 2.70 M/mcL (4.19-5.50) L 11/24/17 11:29 Hgb 8.1 g/dL (12.9-16.9) L 11/24/17 11:29 Hct 24.0 % (37.5-50.1) L 11/24/17 11:29 Neutrophils # 21.9 K/mcL (1.6-8.9) H 11/24/17 00:34 Monocytes # 1.8 K/mcL (0.0-1.3) H 11/24/17 00:34 Platelet Estimate Increased (Normal) H 11/24/17 00:34 PT 13.3 Seconds (9.4-12.1) H 11/24/17 11:29 Sodium 130 mEq/L (136-145) L 11/24/17 11:29 Carbon Dioxide 20 mEq/L (23-29) L 11/24/17 11:29 BUN 29 mg/dL (6-20) H 11/24/17 11:29 Creatinine 2.27 mg/dL (0.70-1.30) H 11/24/17 11:29 Est GFR ( Amer) 38 (> 60) L 11/24/17 11:29 Est GFR (Non-Af Amer) 32 (> 60) L 11/24/17 11:29 Glucose 127 mg/dL (70-105) H 11/24/17 11:29 POC Glucose 134 (58-89) H 11/24/17 12:13 Calculated Osmolality 277 (280-300) L 11/24/17 11:29 Calcium 8.0 mg/dL (8.6-10.3) L 11/24/17 11:29 Alkaline Phosphatase 129 Units/L (34-104) H 11/24/17 11:29 Albumin 3.3 g/dL (3.5-5.7) L 11/24/17 11:29 Albumin/Globulin Ratio 0.9 (1.1-2.2) L 11/24/17 11:29 Lipase 9 Units/L (11-82) L 11/23/17 11:30 Enterococcus sp PCR DETECTED (Not Detect) A 11/23/17 14:37 - Clinical Findings Intake & Output: Intake & Output 11/24/17 11/24/17 11/24/17 07:59 15:59 23:59 Intake Total 1120 / 1120 1000 / 1000 Balance 1120 / 1120 1000 / 1000 Weight 117.5 kg - Attending Attestation I examined this patient and my medical decision-making was reviewed with the Resident Physician. I agree with the documented findings, disposition and treatment plan as described except to the extent set forth below. Patient seen and examined. Labs, radiology, chart personally reviewed. I was called by the hospitalist to evaluate this patient was on the floor because of his condition is deteriorating and when I went to the floor patient needed to be transferred to ICU. I personally called Dr. Noland and due to his condition we both agreed this patient needed to be transferred to [facility]. Agree with resident's history and physical, assessment, plan with following comments: POLYSOMNOGRAPHER: Patient follows commands, however he is lethargic Pulmonary: Acceptable oxygenation and ventilation. Patient with tachypnea this is due his worsening of condition and pain. Cardiovascular: Patient hemodynamically unstable. GI: Nutrition per dietary and GI prophylaxis per routine. Abdominal examination showed evidence of rigidity abdomen and very tender and reviewed CT abdomen personally with evidence of splenic bleeding can infarct. Heme: DVT prophylaxis per routine Renal; urine out put and renal funtion reviewed. Worsening of kidney function continued to be hoarse and even more specially with giving him contrast. He may need hemodialysis and patient understand that. Endorcine: blood glucose is monitored Lines: all lines checked and no evidence of infections Skin: skin care to prevent pressure ulcers per nursing routine care Patient was transferred to ICU under close monitoring and necessary arrangement was made for him to be transferred to [facility]. Also discussed with the radiology regarding intervention. I spent 90 min of Critical Care time with this patient. It involved decision making of high complexity to assess, manipulate, and support vital organ system failure and/or to prevent further life threatening deterioration of the patient' s condition. The time involved in the performance of separately reportable procedures was not counted toward critical care time.
[2017-11-24] MEDS ORDERED: 0.9 % Sodium Chloride 1,000 ML ONE (13:03)
[2017-11-24] MEDS ORDERED: *HR* HYDROmorphone (PF) 1 MG/ML SYRINGE IVP ONE (13:14)
[2017-11-24 13:19] VITALS: BP 156/95
[2017-11-24] MEDS ORDERED: Aminoglycoside Consult 1 EACH MC ONE (13:49)
[2017-11-24 14:11] LABS: Hepatitis B Surface Antigen Nonreactive (Nonreactive)
--- NOTE | 2017-11-24 14:18 | Discharge Summary ---
<EvelineChristian Garcia - Last Filed: 11/24/17 16:33> Date of Encounter: 11/24/17 Time of Encounter: 13:45 - Discharge Diagnosis (1) Hemorrhagic shock Priority: Primary Status: Acute (2) Splenic infarct Priority: Primary Status: Acute (3) Hemorrhage of spleen Priority: Primary Status: Acute (4) RASHAWN (acute kidney injury) Priority: Primary Status: Acute (5) Hepatitis C Priority: Secondary Status: Acute Qualifiers: Qualified Code(s): B19.20 - Unspecified viral hepatitis C without hepatic coma (6) Diabetes mellitus Priority: Secondary Status: Chronic Qualifiers: Diabetes mellitus type: type 2 Diabetes mellitus complication status: without complication Diabetes mellitus attending radiologist insulin use: without jail use Qualified Code(s): E11.9 - Type 2 diabetes mellitus without complications (7) Hypertension Priority: Secondary Status: Chronic Qualifiers: Hypertension type: essential hypertension Qualified Code(s): I10 - Essential (primary) hypertension (8) Echocardiogram abnormal Priority: Primary Status: Acute (9) History of bacteremia Priority: Secondary Status: Acute - Discharge Medications Allergies/Adverse Reactions: 3 Allergy/AdvReac Type Severity Reaction Status Date / Time Penicillins Allergy Rash Verified 11/23/17 16:07 Sulfa (Sulfonamide AdvReac Rash Verified 11/23/17 16:07 Antibiotics) Labs on day of discharge: Labs from last 24 hours 11/24/17 11/24/17 11/24/17 12:13 11:29 11:29 WBC RBC Hgb Hct MCV MCH MCHC RDW Plt Count MPV Immature Gran % Seg Neutrophils % Lymphocytes % Monocytes % Eosinophils % Basophils % Neutrophils # Lymphocytes # Monocytes # Eosinophils # Basophils # Platelet Estimate Immature Plt Fraction PT INR Sodium 130 L Potassium 5.0 Chloride 101 Carbon Dioxide 20 L BUN 29 H Creatinine 2.27 H Est GFR ( Amer) 38 L Est GFR (Non-Af Amer) 32 L BUN/Creatinine Ratio 13 Glucose 127 H POC Glucose 134 H Calculated Osmolality 277 L Lactic Acid Calcium 8.0 L Total Bilirubin 0.4 AST 16 ALT 18 Alkaline Phosphatase 129 H Serum Total Protein 6.8 Albumin 3.3 L Globulin 3.5 Albumin/Globulin Ratio 0.9 L Blood Type A NEGATIVE Antibody Screen NEGATIVE Crossmatch See Detail 11/24/17 11/24/17 11/24/17 11:29 11:29 00:34 WBC 18.9 H RBC 2.70 L Hgb 8.1 L Hct 24.0 L MCV 88.9 MCH 30.0 MCHC 33.8 RDW 13.1 Plt Count 396 MPV 10.0 Immature Gran % Seg Neutrophils % Lymphocytes % Monocytes % Eosinophils % Basophils % Neutrophils # Lymphocytes # Monocytes # Eosinophils # Basophils # Platelet Estimate Immature Plt Fraction PT 13.3 H INR 1.2 Sodium 128 L Potassium 4.9 Chloride 99 Carbon Dioxide 20 L BUN 21 H Creatinine 1.61 H Est GFR ( Amer) 57 L Est GFR (Non-Af Amer) 47 L BUN/Creatinine Ratio 13 Glucose 189 H POC Glucose Calculated Osmolality 274 L Lactic Acid Calcium 8.4 L Total Bilirubin AST ALT Alkaline Phosphatase Serum Total Protein Albumin Globulin Albumin/Globulin Ratio Blood Type Antibody Screen Crossmatch 11/24/17 11/24/17 11/23/17 00:34 00:34 19:17 WBC 25.6 H D RBC 3.14 L Hgb 9.4 L D Hct 27.2 L MCV 86.6 MCH 29.9 MCHC 34.6 RDW 12.7 Plt Count 491 H MPV 9.7 Immature Gran % 2.1 Seg Neutrophils % 85.7 Lymphocytes % 4.8 Monocytes % 7.0 Eosinophils % 0.1 Basophils % 0.3 Neutrophils # 21.9 H Lymphocytes # 1.2 Monocytes # 1.8 H Eosinophils # 0.0 Basophils # 0.1 Platelet Estimate Increased H Immature Plt Fraction 4.2 PT INR Sodium Potassium Chloride Carbon Dioxide BUN Creatinine Est GFR ( Amer) Est GFR (Non-Af Amer) BUN/Creatinine Ratio Glucose POC Glucose 170 H Calculated Osmolality Lactic Acid 1.2 Calcium Total Bilirubin AST ALT Alkaline Phosphatase Serum Total Protein Albumin Globulin Albumin/Globulin Ratio Blood Type Antibody Screen Crossmatch - Impressions ITS Impressions Abdomen/Pelvis CT 11/24/17 10:13 IMPRESSION: 1. New moderate volume acute hemoperitoneum predominately in the perihepatic and perisplenic region. Splenomegaly with persistent focal wedge-shaped area within the mid spleen is again identified with areas of high density material compatible with acute hemorrhage. Findings could be related to splenic infarct, however, correlation to any history of trauma is recommended as a laceration could also be a possibility. 2. Persistent delayed nephrograms suspicious for contrast induced nephropathy. 3. Small left pleural effusion with bibasilar atelectasis. 4. Hepatic steatosis. 5. Heterogeneous appearance of the T9 vertebral body grossly stable since 10/16/2016 and may be related to prior trauma but is otherwise likely benign given stability. Critical results were called by Dr. Adelita Jones MD to Davida Brooks on 11/24/2017 at 11:33. D/ / 11/24/2017 11:49:05 Adelita Jones MD / Shannon Harris Interpreting Provider: Adelita Jones MD Echocardiogram 11/24/17 20:52 Impressions: Technically sub-optimal due to clinical status and poor windows. LVEF >75%. Normal LV chamber size and hyperdynamic function. Mild left ventricular diastolic dysfunction. Normal right ventricular structure and function. Unable to estimate RVSP due to lack of TR jet. Valves were not well visualized. Overall, this study is inadequate to evaluate for endocarditis. Recommend a transesophageal echocardiogram if clinically indicated. Left Ventricular Wall Motion: Rest Echo Findings The apex, apical inferior, mid inferior, basal inferior, apical anterior, mid anterior, basal anterior, apical septal, mid inferior septal, basal inferior septal, apical lateral, mid anterior lateral, basal anterior lateral, mid anterior septal, mid inferior lateral, basal anterior septal and basal inferior lateral rizo were hyperkinetic. Findings: Study Quality * Technically sub-optimal due to clinical status and poor windows. ECG Findings * Sinus tachycardia. Left Ventricle * LVEF >75%. * Normal LV chamber size and hyperdynamic function. Wall thickness not easily quantified due to poor image quality. * Mild left ventricular diastolic dysfunction. Right Ventricle * Normal right ventricular structure and function. Left Atrium * Normal left atrial size. Right Atrium * Right atrium is not well visualized. Interatrial Septum * Interatrial septum not well evaluated. Aortic Valve * Aortic valve not well visualized. Mitral Valve * Mitral valve not well visualized. * No mitral regurgitation. * No mitral stenosis. Tricuspid Valve * Tricuspid valve not well visualized. * No tricuspid regurgitation. * Unable to estimate RVSP due to lack of TR jet. Pulmonic Valve * Pulmonic valve not well visualized. Aorta * Normally sized aortic root. Pericardium * The pericardium appears normal. IVC * The IVC is not well evaluated. Pulmonary Artery * Pulmonary artery not well visualized. Date of admission: 11/23/17 17:14 Primary care physician: Kenny Nelson CNP Consults: 11/23/17 20:52 Consult to Surgery [CONS] Routine Consulting Provider: Fracisco Noland Reason for Consult: splenic infarct Call Completed: No Discharging clinician: Christian Mosquera Anticipated date of discharge: 11/24/17 - Patient Status Disposition: Transfer Critical Access Hosp Condition: Good - Discharge Instructions Follow Up With: Kenny Nelson CNP [Primary Care Provider] - - Hospital Course Hospital course: Mr. Cristobal is a 42 year old male with a past medical history of prior IV drug abuse, enterococcus bacteremia, spinal epidural abscess, diabetes not insulin- dependent, hepatitis C, came to the emergency department complaining of severe abdominal pain (11/23/2017) that started last . He states that he had a sudden onset of abdominal pain last that started in his epigastric region and slowly migrated to his left flank. He waited until after the holidays to come in and said it aggressively got worse to the point where he is unable to eat and became more severe in nature to the point he felt he needed to be seen in the emergency department. Mr. Cristobal has a history of IV drug use denies last IV drug use was one month ago. He denies any abdominal trauma, falls or any other known causes for his abdominal pain. He has not taken any other medications other than that have been prescribed since admission. He states that his only medical issues are hypertension, diabetes and hepatitis C. He said that his blood pressure is usually high at home and he does not feel right currently. He states that he feels weak all over, lightheaded having trouble with thinking, increased shortness of breath and worsening abdominal pain. Critical care team was consulted by the hospitalist service. Upon admission last evening he had a CT of the abdomen that demonstrated splenic infarct. A repeat CT of the abdomen noncontrast demonstrated a new moderate volume acute hemoperitoneum predominantly in the perihepatic and perisplenic region. Splenomegaly with persistent focal wedge-shaped area within the mid spleen is again identified with areas of high density material compatible with acute hemorrhage. CT of the abdomen was reviewed with interventional radiology who recommended a CTA of the abdomen to identify and further localize the site of hemorrhage. The patient had an elevated creatinine in the setting of hypovolemia, receives IV contrast yesterday. There is risk of further degradation of his renal function and this was discussed with Mr. Cristobal the risk of having contrast dye and potentially needing dialysis to protect his renal function. Mr. Cristobal's case was discussed with general surgery who recommended transfer. There was concern that Mr. Cristobal may also have risk for endocarditis with a history of enterococcus bacteremia and his IV drug use. Echocardiogram was completed that demonstrated a left ventricle ejection fraction greater than 75%, normal left and jugular chamber size and hyperdynamic function. Mild left ventricular diastolic dysfunction. Normal right ventricular structure and function. Unable to estimate RVSP due to a lack of TR jet. The valves were not well visualized and overall the study was inadequate for endocarditis. It was recommended that he undergoes a ERICA. Upon evaluation Mr. Cristobal was found to be tachycardic, tachypneic and blood pressure was unstable and ERICA was deferred. [facility] transfer center was contacted and splenic hemorrhage was discussed with the general surgery team and he was accepted to their surgical ICU. Prior to transfer Mr. Cristobal had 2 IVs placed, IV fluids running at 250 ML's/hr and will be sent with 1 unit PRBC for transfusion. Stat labs: WBC 18.9, hemoglobin 8.1, previous 9.4 at midnight and at arrival was 11. Platelet count 396, PT 13.3, INR 1.2, sodium 1:30, potassium 5.0, chloride 101, CO2 20, BUN 29, creatinine 2.27, GFR 32. After transfer to [facility] SICU I spoke with resident Kaden and discussed blood culture results as gram-positive cocci, PCR demonstrating enterococcus, discussed patient's medical history and Hospital course. I also discussed his recent IV contrast dye load and the recommendations for nephrology evaluation potential dialysis for kidney protection. - Time Spent with Patient Total time spent providing and/or coordinating discharge services: Physical Examination Vital Signs: Vital Signs, Last 4 Hours Temp Pulse Resp BP Pulse Ox 11/24/17 13:17 97.4 F L 131 20 156/95 11/24/17 12:48 133 36 138/95 95 11/24/17 11:23 98.3 F 127 24 117/64 93 General appearance: appears uncomfortable Eyes: nonicteric ENT: oropharynx moist Neck: supple Effort: very labored Auscultation: bilateral: diminished breath sounds Cardiovascular: regular rate and rhythm (Tachycardic) Gastrointestinal: hypoactive bowel sounds, tender, rebound tenderness, hepatomegaly Integumentary: normal Extremities: no cyanosis, no edema, no clubbing, pink and warm Musculoskeletal: no deformities non-focal exam anxious <Helen Carpenter M - Last Filed: 11/24/17 18:13> Date of Encounter: 11/24/17 Labs on day of discharge: Labs from last 24 hours 11/24/17 11/24/17 11/24/17 12:13 11:29 11:29 WBC RBC Hgb Hct MCV MCH MCHC RDW Plt Count MPV Immature Gran % Seg Neutrophils % Lymphocytes % Monocytes % Eosinophils % Basophils % Neutrophils # Lymphocytes # Monocytes # Eosinophils # Basophils # Platelet Estimate Immature Plt Fraction PT INR Sodium 130 L Potassium 5.0 Chloride 101 Carbon Dioxide 20 L BUN 29 H Creatinine 2.27 H Est GFR ( Amer) 38 L Est GFR (Non-Af Amer) 32 L BUN/Creatinine Ratio 13 Glucose 127 H POC Glucose 134 H Calculated Osmolality 277 L Lactic Acid Calcium 8.0 L Total Bilirubin 0.4 AST 16 ALT 18 Alkaline Phosphatase 129 H Serum Total Protein 6.8 Albumin 3.3 L Globulin 3.5 Albumin/Globulin Ratio 0.9 L Hep Bs Antigen Blood Type A NEGATIVE Antibody Screen NEGATIVE Crossmatch See Detail 11/24/17 11/24/17 11/24/17 11:29 11:29 09:12 WBC 18.9 H RBC 2.70 L Hgb 8.1 L Hct 24.0 L MCV 88.9 MCH 30.0 MCHC 33.8 RDW 13.1 Plt Count 396 MPV 10.0 Immature Gran % Seg Neutrophils % Lymphocytes % Monocytes % Eosinophils % Basophils % Neutrophils # Lymphocytes # Monocytes # Eosinophils # Basophils # Platelet Estimate Immature Plt Fraction PT 13.3 H INR 1.2 Sodium Potassium Chloride Carbon Dioxide BUN Creatinine Est GFR ( Amer) Est GFR (Non-Af Amer) BUN/Creatinine Ratio Glucose POC Glucose Calculated Osmolality Lactic Acid Calcium Total Bilirubin AST ALT Alkaline Phosphatase Serum Total Protein Albumin Globulin Albumin/Globulin Ratio Hep Bs Antigen Nonreactive Blood Type Antibody Screen Crossmatch 11/24/17 11/24/17 11/24/17 00:34 00:34 00:34 WBC 25.6 H D RBC 3.14 L Hgb 9.4 L D Hct 27.2 L MCV 86.6 MCH 29.9 MCHC 34.6 RDW 12.7 Plt Count 491 H MPV 9.7 Immature Gran % 2.1 Seg Neutrophils % 85.7 Lymphocytes % 4.8 Monocytes % 7.0 Eosinophils % 0.1 Basophils % 0.3 Neutrophils # 21.9 H Lymphocytes # 1.2 Monocytes # 1.8 H Eosinophils # 0.0 Basophils # 0.1 Platelet Estimate Increased H Immature Plt Fraction 4.2 PT INR Sodium 128 L Potassium 4.9 Chloride 99 Carbon Dioxide 20 L BUN 21 H Creatinine 1.61 H Est GFR ( Amer) 57 L Est GFR (Non-Af Amer) 47 L BUN/Creatinine Ratio 13 Glucose 189 H POC Glucose Calculated Osmolality 274 L Lactic Acid 1.2 Calcium 8.4 L Total Bilirubin AST ALT Alkaline Phosphatase Serum Total Protein Albumin Globulin Albumin/Globulin Ratio Hep Bs Antigen Blood Type Antibody Screen Crossmatch 11/23/17 19:17 WBC RBC Hgb Hct MCV MCH MCHC RDW Plt Count MPV Immature Gran % Seg Neutrophils % Lymphocytes % Monocytes % Eosinophils % Basophils % Neutrophils # Lymphocytes # Monocytes # Eosinophils # Basophils # Platelet Estimate Immature Plt Fraction PT INR Sodium Potassium Chloride Carbon Dioxide BUN Creatinine Est GFR ( Amer) Est GFR (Non-Af Amer) BUN/Creatinine Ratio Glucose POC Glucose 170 H Calculated Osmolality Lactic Acid Calcium Total Bilirubin AST ALT Alkaline Phosphatase Serum Total Protein Albumin Globulin Albumin/Globulin Ratio Hep Bs Antigen Blood Type Antibody Screen Crossmatch - Impressions ITS Impressions Abdomen/Pelvis CT 11/24/17 10:13 IMPRESSION: 1. New moderate volume acute hemoperitoneum predominately in the perihepatic and perisplenic region. Splenomegaly with persistent focal wedge-shaped area within the mid spleen is again identified with areas of high density material compatible with acute hemorrhage. Findings could be related to splenic infarct, however, correlation to any history of trauma is recommended as a laceration could also be a possibility. 2. Persistent delayed nephrograms suspicious for contrast induced nephropathy. 3. Small left pleural effusion with bibasilar atelectasis. 4. Hepatic steatosis. 5. Heterogeneous appearance of the T9 vertebral body grossly stable since 10/16/2016 and may be related to prior trauma but is otherwise likely benign given stability. Critical results were called by Dr. Adelita Jones MD to Davida Brooks on 11/24/2017 at 11:33. D/ / 11/24/2017 11:49:05 Adelita Jones MD / Shannon Harris Interpreting Provider: Adelita Jones MD Abdomen/Pelvis CTA 11/24/17 11:14 IMPRESSION: 1. Contrast pooling within the splenic parenchyma on the arterial phase compatible with active bleeding. Unchanged area of wedge-shaped hypoattenuation within the spleen compatible with splenic infarction versus laceration. 2. Moderate volume of hemoperitoneum without significant change from the study performed earlier on the same day. Findings were discussed with Dr. Christian Mosquera of the [facility] at 1:49 pm on 11/24/2017. D/ / Lobo Gramajo MD / Lobo Gramajo MD Interpreting Provider: Lobo Gramajo MD Echocardiogram 11/24/17 20:52 Impressions: Technically sub-optimal due to clinical status and poor windows. LVEF >75%. Normal LV chamber size and hyperdynamic function. Mild left ventricular diastolic dysfunction. Normal right ventricular structure and function. Unable to estimate RVSP due to lack of TR jet. Valves were not well visualized. Overall, this study is inadequate to evaluate for endocarditis. Recommend a transesophageal echocardiogram if clinically indicated. Left Ventricular Wall Motion: Rest Echo Findings The apex, apical inferior, mid inferior, basal inferior, apical anterior, mid anterior, basal anterior, apical septal, mid inferior septal, basal inferior septal, apical lateral, mid anterior lateral, basal anterior lateral, mid anterior septal, mid inferior lateral, basal anterior septal and basal inferior lateral rizo were hyperkinetic. Findings: Study Quality * Technically sub-optimal due to clinical status and poor windows. ECG Findings * Sinus tachycardia. Left Ventricle * LVEF >75%. * Normal LV chamber size and hyperdynamic function. Wall thickness not easily quantified due to poor image quality. * Mild left ventricular diastolic dysfunction. Right Ventricle * Normal right ventricular structure and function. Left Atrium * Normal left atrial size. Right Atrium * Right atrium is not well visualized. Interatrial Septum * Interatrial septum not well evaluated. Aortic Valve * Aortic valve not well visualized. Mitral Valve * Mitral valve not well visualized. * No mitral regurgitation. * No mitral stenosis. Tricuspid Valve * Tricuspid valve not well visualized. * No tricuspid regurgitation. * Unable to estimate RVSP due to lack of TR jet. Pulmonic Valve * Pulmonic valve not well visualized. Aorta * Normally sized aortic root. Pericardium * The pericardium appears normal. IVC * The IVC is not well evaluated. Pulmonary Artery * Pulmonary artery not well visualized. Date of admission: 11/23/17 17:14 Primary care physician: Kenny Nelson CNP Consults: 11/23/17 20:52 Consult to Surgery [CONS] Routine Consulting Provider: Fracisco Noland Reason for Consult: splenic infarct Call Completed: No - Hospital Course Hospital course: Mr. Cristobal is a 42 year old male - Time Spent with Patient Total time spent providing and/or coordinating discharge services: - Attending Attestation I examined this patient and my medical decision-making was reviewed with the Resident Physician. I agree with the documented findings, disposition and treatment plan as described except to the extent set forth below. Please refer to the consultation for more details. Patient was transferred to [facility] for intervention.
[2017-11-24 15:17] LABS: Acinetobacter baumannii by PCR Not Detected (Not Detect); Candida albicans by PCR Not Detected (Not Detect); Candida glabrata by PCR Not Detected (Not Detect); Candida krusei by PCR Not Detected (Not Detect); Candida parapsilosis by PCR Not Detected (Not Detect); Candida tropicalis by PCR Not Detected (Not Detect); Enterococcus by PCR ***DETECTED*** (Not Detect); Escherichia coli by PCR Not Detected (Not Detect); Klebsiella oxytoca by PCR Not Detected (Not Detect); Klebsiella pneumoniae by PCR Not Detected (Not Detect); Pseudomonas aeruginosa by PCR Not Detected (Not Detect); Serratia marcescens by PCR Not Detected (Not Detect); Staphylococcus aureus by PCR Not Detected (Not Detect); Streptococcus agalactiae(B)PCR Not Detected (Not Detect); Streptococcus by PCR Not Detected (Not Detect); Streptococcus pneumoniae PCR Not Detected (Not Detect); Streptococcus pyogenes (A) PCR Not Detected (Not Detect); vanA/B Vancomycin-Resist Genes Not Detected (Not Detect)
--- NOTE | 2017-11-24 19:13 | Internal Med Progress Note ---
Date of Encounter: 11/28/17 Time of Encounter: 11:00 - Assessment and plan (1) Hemorrhage of spleen Status: Acute Assessment and plan: Patient transferred to [facility] due to concerns for hemorrhagic shock secondary to splenic rupture - Subjective Interval history: Patient being transferred to [facility] due to splenic rupture with concerns for heart valve vegetation due to bacteremia - Constitutional Vitals: Temp Pulse Resp BP Pulse Ox 97.4 F L 131 20 156/95 95 11/24/17 13:17 11/24/17 13:17 11/24/17 13:17 11/24/17 13:17 11/24/17 12:48 General appearance: Present: A&O X 3 - Respiratory Respiratory exam: Present: CTAB. Absent: accessory muscle use, rales, rhonchi, wheezes - Cardiovascular Cardiovascular exam: Present: RRR, +S1, +S2. Absent: diastolic murmur, gallop, rubs, systolic murmur Internal Medicine: Result - Labs CBC & Chem 7: 11/24/17 11:29 11/24/17 11:29 Labs: Short CBC 11/24/17 11/24/17 Range/Units 00:34 11:29 WBC 25.6 H D 18.9 H (4.3-11.1) K/mcL Hgb 9.4 L D 8.1 L (12.9-16.9) g/dL Hct 27.2 L 24.0 L (37.5-50.1) % Plt Count 491 H 396 (140-400) K/mcL Neutrophils # 21.9 H (1.6-8.9) K/mcL BMP 11/24/17 11/24/17 00:34 11:29 Sodium 128 L 130 L Potassium 4.9 5.0 Chloride 99 101 Carbon Dioxide 20 L 20 L BUN 21 H 29 H Creatinine 1.61 H 2.27 H Glucose 189 H 127 H Calcium 8.4 L 8.0 L Liver Function 11/24/17 Range/Units 11:29 Total Bilirubin 0.4 (0.3-1.0) mg/dL AST 16 (13-39) Units/L ALT 18 (7-52) Units/L Alkaline Phosphatase 129 H (34-104) Units/L Albumin 3.3 L (3.5-5.7) g/dL - ABG Interpretation ABG results: PT/INR, D-dimer PT 13.3 Seconds (9.4-12.1) H 11/24/17 11:29 - Impressions Impressions Abdomen/Pelvis CT 11/24/17 10:13 IMPRESSION: 1. New moderate volume acute hemoperitoneum predominately in the perihepatic and perisplenic region. Splenomegaly with persistent focal wedge-shaped area within the mid spleen is again identified with areas of high density material compatible with acute hemorrhage. Findings could be related to splenic infarct, however, correlation to any history of trauma is recommended as a laceration could also be a possibility. 2. Persistent delayed nephrograms suspicious for contrast induced nephropathy. 3. Small left pleural effusion with bibasilar atelectasis. 4. Hepatic steatosis. 5. Heterogeneous appearance of the T9 vertebral body grossly stable since 10/16/2016 and may be related to prior trauma but is otherwise likely benign given stability. Critical results were called by Dr. Adelita Jones MD to Davida Brooks on 11/24/2017 at 11:33. D/ / 11/24/2017 11:49:05 Adelita Jones MD / Shannon Harris Interpreting Provider: Adelita Jones MD Abdomen/Pelvis CTA 11/24/17 11:14 IMPRESSION: 1. Contrast pooling within the splenic parenchyma on the arterial phase compatible with active bleeding. Unchanged area of wedge-shaped hypoattenuation within the spleen compatible with splenic infarction versus laceration. 2. Moderate volume of hemoperitoneum without significant change from the study performed earlier on the same day. Findings were discussed with Dr. Christian Mosquera of the [facility] at 1:49 pm on 11/24/2017. D/ / Lobo Gramajo MD / Lobo Gramajo MD Interpreting Provider: Lobo Gramajo MD Echocardiogram 11/24/17 20:52 Impressions: Technically sub-optimal due to clinical status and poor windows. LVEF >75%. Normal LV chamber size and hyperdynamic function. Mild left ventricular diastolic dysfunction. Normal right ventricular structure and function. Unable to estimate RVSP due to lack of TR jet. Valves were not well visualized. Overall, this study is inadequate to evaluate for endocarditis. Recommend a transesophageal echocardiogram if clinically indicated. Left Ventricular Wall Motion: Rest Echo Findings The apex, apical inferior, mid inferior, basal inferior, apical anterior, mid anterior, basal anterior, apical septal, mid inferior septal, basal inferior septal, apical lateral, mid anterior lateral, basal anterior lateral, mid anterior septal, mid inferior lateral, basal anterior septal and basal inferior lateral rizo were hyperkinetic. Findings: Study Quality * Technically sub-optimal due to clinical status and poor windows. ECG Findings * Sinus tachycardia. Left Ventricle * LVEF >75%. * Normal LV chamber size and hyperdynamic function. Wall thickness not easily quantified due to poor image quality. * Mild left ventricular diastolic dysfunction. Right Ventricle * Normal right ventricular structure and function. Left Atrium * Normal left atrial size. Right Atrium * Right atrium is not well visualized. Interatrial Septum * Interatrial septum not well evaluated. Aortic Valve * Aortic valve not well visualized. Mitral Valve * Mitral valve not well visualized. * No mitral regurgitation. * No mitral stenosis. Tricuspid Valve * Tricuspid valve not well visualized. * No tricuspid regurgitation. * Unable to estimate RVSP due to lack of TR jet. Pulmonic Valve * Pulmonic valve not well visualized. Aorta * Normally sized aortic root. Pericardium * The pericardium appears normal. IVC * The IVC is not well evaluated. Pulmonary Artery * Pulmonary artery not well visualized. Consult Discharge Plan - Plan Referrals: Kenny Nelson CNP [Primary Care Provider] -
[2017-11-25] MEDS ORDERED: Vancomycin 1,750 MG in D5% in Water 500 ML IVPB SCH (05:00)
[2017-11-25 10:24] LABS: Hepatitis A Antibody IgM Nonreactive (Nonreactive)
[2017-11-25 10:42] LABS: HIV-1&2 Antibody & p24 Ag Nonreactive (Nonreactive)
[2017-11-25 14:21] LABS: Hepatitis B Core IgM Nonreactive (Nonreactive)
[2017-11-25 14:22] LABS: Hepatitis C Virus Antibody Reactive (Nonreactive)
--- NOTE | 2017-11-25 18:35 | Electrocardiograph Report ---
[address] [address] Test Date: 2017-11-23 Pat Name: Jeff Cristobal Department: 112 Room: 07 Gender: M Utility Pipe Layer: CAT : 1975 Requested By: Rex Santso Order Number: [id number] Reading MD: Jez Pugh MD Measurements Intervals Jolon Rate: 147 P: -5 LA: 105 QRS: 80 QRSD: 93 T: 47 QT: 273 QTc: 357 Interpretive Statements SINUS TACHYCARDIA WITH SHORT LA INTERVAL, POSSIBLE ATRIAL FLUTTER Electronically Signed On 11-25-2017 18:34:14 EST by Jez Pugh MD
[2017-11-26 05:29] LABS: Acinetobacter baumannii by PCR Not Detected (Not Detect); Candida albicans by PCR Not Detected (Not Detect); Candida glabrata by PCR Not Detected (Not Detect); Candida krusei by PCR Not Detected (Not Detect); Candida parapsilosis by PCR Not Detected (Not Detect); Candida tropicalis by PCR Not Detected (Not Detect); Enterococcus by PCR ***DETECTED*** (Not Detect); Escherichia coli by PCR Not Detected (Not Detect); Klebsiella oxytoca by PCR Not Detected (Not Detect); Klebsiella pneumoniae by PCR Not Detected (Not Detect); Pseudomonas aeruginosa by PCR Not Detected (Not Detect); Serratia marcescens by PCR Not Detected (Not Detect); Staphylococcus aureus by PCR Not Detected (Not Detect); Streptococcus agalactiae(B)PCR Not Detected (Not Detect); Streptococcus by PCR Not Detected (Not Detect); Streptococcus pneumoniae PCR Not Detected (Not Detect); Streptococcus pyogenes (A) PCR Not Detected (Not Detect); blaKPC Carbapenem-Resist Gene Not Detected (Not Detect); mecA Methicillin-Resist Gene Not Detected (Not Detect); vanA/B Vancomycin-Resist Genes Not Detected (Not Detect)
== END 2017-11-24 13:50 | disposition other institution (70) | DRG 720 ==
LOC: EMEROO 11:08 → SUATTDRO 17:14 → 2ANU 17:14 → ICNU 11-24 12:06
PROVIDERS: ADMIT Pediatrics; ATTEND Hospitalist

== ENCOUNTER 2019-04-04 01:49 | Inpatient (IN) ==
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
[2019-04-04] MEDS ORDERED: Isovue-370 500 ML BOTTLE IVP ONE (05:25)
[2019-04-04] MEDS ORDERED: Naloxone 0.4 MG/ML INJ IVP PRN (05:25)
[2019-04-04 05:52] LABS: Bilirubin,Urine Negative (Negative); Blood,Urine Small (Negative); Clarity,Urine Clear (Clear); Color,Urine Yellow (Yellow); Glucose,Urine (UA) Normal (Normal); Ketones,Urine Negative (Negative); Leukocyte Esterase,Urine Negative (Negative); Nitrite,Urine Negative (Negative); Protein,Urine Negative (Neg-Trace); Specific Gravity,Urine 1.017 (1.010-1.025); Urobilinogen,Urine Normal (Normal)
[2019-04-04 05:54] LABS: Bacteria,Urine None Seen per hpf (None-Few); Hyaline Casts,Urine None Seen per lpf (None-Few); Squamous Epithelial Cell,Urine Moderate per lpf (None-Few); WBC,Urine 0-3 per hpf (0-3)
[2019-04-04 06:04] LABS: ABG Base Excess 5 mEq/L (-2 to 3); ABG HCO3 31 mEq/L (21-27); ABG Oxygen Saturation 91 % (95-98); ABG PCO2 50 mmHg (35-45); ABG PO2 61 mmHg (85-104); ABG TCO2 33 mEq/L (20-26)
[2019-04-04 07:23] LABS: Basophils # 0.1 K/mcL (0.0-0.2); Basophils % 0.5 %; Eosinophils # 0.2 K/mcL (0.0-0.6); Eosinophils % 1.6 %; Hematocrit 39.3 % (37.5-50.1); Hemoglobin 12.9 g/dL (12.9-16.9); Immature Granulocytes % 0.4 % (0-4); Lymphocytes # 3.6 K/mcL (0.6-4.6); Lymphocytes % 24.7 %; Mean Corpuscular HGB Conc 32.8 g/dL (31.6-35.5); Mean Corpuscular Hemoglobin 30.9 pg (28.0-33.3); Mean Platelet Volume 11.8 fL (9.4-12.4); Monocytes # 1.8 K/mcL (0.0-1.3); Monocytes % 12.6 %; Neutrophils # 8.8 K/mcL (1.6-8.9); Platelet Count 340 K/mcL (140-400); Red Blood Count 4.18 M/mcL (4.19-5.50); Segmented Neutrophils % 60.2 %
[2019-04-04 07:41] LABS: Acetaminophen < 10 mcg/mL (10-20); Alanine Aminotransferase 37 Units/L (7-52); Albumin 3.7 g/dL (3.5-5.7); Alkaline Phosphatase 132 Units/L (34-104); Aspartate Amino Transferase 64 Units/L (13-39); BUN/Creatinine Ratio 23 (6-26); Bilirubin,Total 0.9 mg/dL (0.3-1.0); Blood Urea Nitrogen 18 mg/dL (6-20); Calcium 9.1 mg/dL (8.6-10.3); Carbon Dioxide 30 mEq/L (23-29); Chloride 99 mEq/L (98-107); Globulin 3.7 g/dL (2.4-3.5); Glucose 93 mg/dL (70-105); Magnesium 1.6 mg/dL (1.6-2.6); Osmolality,Calculated 288 (280-300); Phosphorous 3.9 mg/dL (2.7-4.5); Potassium 3.4 mEq/L (3.5-5.1); Salicylate < 2.5 mg/dL (15.0-30.0); Sodium 138 mEq/L (136-145); Total Protein 7.4 g/dL (6.4-8.9); Troponin I < 0.03 ng/mL (< 0.04); eGFR For Non-African Americans > 60 (> 60)
[2019-04-04 07:42] LABS: INR 1.2; Prothrombin Time 13.2 Seconds (9.4-12.1)
[2019-04-04] MEDS ORDERED: Piperacillin/Tazobactam 3.375 GM in 0.9 % Sodium Chloride Mini Bag 100 ML IVPB SCH (08:00)
[2019-04-04] MEDS ORDERED: Clindamycin 600 MG/50 ML 600 MG/50 ML IV.SOLN IVPB SCH (08:00)
[2019-04-04] MEDS ORDERED: Cefepime HCl 2,000 MG in Water for inj. (sterile) 20 ML 20 ML IVP SCH (08:00)
[2019-04-04] MEDS ORDERED: 0.9 % Sodium Chloride 1,000 ML IVC SCH (08:00)
[2019-04-04 11:05] VITALS: BP 126/78
[2019-04-04] MEDS ORDERED: *HR* LORazepam 2 MG/ML VIAL IVP PRN (11:08)
[2019-04-04] MEDS ORDERED: Thiamine (B-1) 100 MG in D5% in Water 50 ML IVPB SCH (11:15)
[2019-04-04] MEDS ORDERED: Folic Acid 1 MG in D5% in Water 50 ML IVPB ONE (11:15)
[2019-04-04] MEDS ORDERED: Folic Acid 1 MG in D5% in Water 50 ML IVPB SCH (12:30)
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
[2019-04-04] MEDS ORDERED: Perflutren Lipid Microsphere 1.3 ML in 0.9 % Sodium Chloride 8.7 ML IVP ONE (13:48)
[2019-04-05] MEDS ORDERED: Thiamine (B-1) 100 MG, Folic Acid 1 MG in D5% in Water 50 ML IVPB SCH (09:00)
--- NOTE | 2019-04-05 18:33 | Electrocardiograph Report ---
[address] [address] Test Date: 2019-04-04 Pat Name: Jeff Cristobal Department: 110 Room: 2N01 Gender: M Professor Of Music: : 1975 Requested By: Gena Rodriguez Order Number: [id number] Reading MD: Le Dang Measurements Intervals [place] Rate: 96 P: 61 TN: 174 QRS: 7 QRSD: 111 T: 46 QT: 406 QTc: 460 Interpretive Statements SINUS RHYTHM INTRAVENTRICULAR CONDUCTION DELAY [110+ ms QRS DURATION] ARTIFACT Electronically Signed On 04-05-2019 18:31:31 EDT by Le Dang
== END 2019-04-04 14:40 | disposition critical access hospital (66) | DRG 137 ==
LOC: 2NNU
PROVIDERS: ADMIT Family Medicine; ATTEND Family Medicine